=== PATIENT | male | born 1970 | race Caucasian/White ===

== ENCOUNTER 2020-04-02 13:36 | Outpatient (CLI) | payer OTHER, SELFPAY ==
--- NOTE | ~2020-04-02 | MR_ITS ---
EXAMINATION: MR knee LT wo con DATE: 04/02/2020 14:36 INDICATION: Left knee pain TECHNIQUE: Magnetic resonance imaging (MRI) of the left knee was performed without intravenous contra st. Sequences included coronal PD-weighted FSE, coronal PD-weighted FS FSE, sagittal T2-weighted FSE , sagittal PD-weighted FS FSE and axial PD weighted fat saturated FSE. COMPARISON: None. FINDINGS: Medial compartment: Subtle oblique linear increased signal extending to the inferior articular surface and the peripheral third at the junction of the body and posterior horn of the medial meniscus which is evident only on the sagittal nonfat saturated PD weighted images. The angle of the increased signal parallels the co ntour of the adjacent medial femoral condyle and this remains indeterminate for meniscal tear versus artifact. Partial-thickness chondral fissuring which appears to involve greater than 50% the cartilag e thickness but without degenerative subchondral changes at the central weightbearing medial femoral condyle. Lateral compartment: Lateral meniscus is normal. Articular cartilage appears normal. There is however a small focus of mil d subarticular edema at the central aspect of the lateral tibial plateau suggesting otherwise occult overlying chondromalacia/fissuring. Patellofemoral compartment: Deep chondral fissuring involving greater than 50% the cartilage thickness but without degenerative s ubchondral changes at the central aspect of the medial patellar facet. Deep chondral fissuring with u nderlying cortical irregularity at the central to inferior aspect of the trochlear groove and inferom edial aspect of the lateral trochlea. Ligaments and tendons: Anterior and posterior cruciate ligaments are normal. The medial collateral ligament and fibular kayla ateral ligament complex are normal. The extensor mechanism is normal. The visualized medial and later al hamstring tendons as well as the iliotibial band are normal. Fluid: Physiologic amount of fluid in the joint space. No loose osteochondral bodies identified. Moderate-si zed Barrios's cyst measuring 5.2 x 1.6 x 2.9 cm. Osseous/other: Normal marrow signal aside from the previously noted tiny focus of subarticular edema at the lateral tibial plateau. No fracture or pathologic marrow replacing process. IMPRESSION: 1. 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 2. Subtle linear increased signal at the junction of the body and posterior horn of the medial menisc us seen on only one sequence which could represent either a longitudinal oblique tear or artifact. Gi rachael the orientation/appearance and the absence of correlate on the remaining sequences would favor ar tifact over tear. 3. Moderate-sized Barrios's cyst. Reviewed, dictated and finalized at location A. [facility] IMPRESSION: 1. Mild tricompartmental osteoarthritis with high-grade chondromalacia in the t rochlea, potentially at the lateral tibial plateau and moderate grade chondral malacia the patella and weightbearing medial femoral condyle. 2. Subtle linear increased signal at the junction of the body and posterior hor n of the medial meniscus seen on only one sequence which could represent either a longitudinal oblique tear or artifact. Given the orientation/appearance and the absence of correlate on the remaining sequences would favor artifact over t ear. 3. Moderate-sized Barrios's cyst.
== END 2020-04-02 13:37 | disposition home or self-care (01) ==
PROVIDERS: PCP Family Medicine; Visit Provider Orthopaedic Surgery
DX: M17.12 Unilateral primary osteoarthritis, left knee (principal); M71.22 Synovial cyst of popliteal space [Baker], left knee
CPT/HCPCS: 73721

== ENCOUNTER 2022-11-10 07:55 | Outpatient (CLI) | payer OTHER, SELFPAY ==
--- NOTE | ~2022-11-10 | CT_ITS ---
CT Scan of the Chest without Contrast: Clinical Indication: Lung cancer screening, personal history of nicotine dependence Technique: Contiguous sections were acquired throughout the chest without intravenous contrast. Dose reduction technique was used on this scan by utilizing automated exposure control and iterative recon struction technique. The dose-length product (DLP) was 75.09 mGy-cm. Findings: There is no evidence of any significant mediastinal, hilar or axillary lymphadenopathy. The mediastin al soft tissues appear normal. There is no evidence of pleural or pericardial effusion. Biapical scarring noted. No other pulmonary nodules or infiltrates are noted. Images through the upper abdomen reveal no abnormalities. Impression: Lung RADS 2: Benign appearance. 12 month follow-up screening CT advised. Reviewed, dictated and finalized at [facility]. Impression: Lung RADS 2: Benign appearance. 12 month follow-up screening CT advised.
== END 2022-11-10 07:56 | disposition home or self-care (01) ==
LOC: ANHIMG 07:58
PROVIDERS: PCP Family Medicine; Visit Provider Physician Assistant
DX: Z12.2 Encounter for screening for malignant neoplasm of respiratory organs (principal); Z87.891 Personal history of nicotine dependence
CPT/HCPCS: 71271